=== PATIENT | female | born 2005 | race Caucasian/White ===

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

== ENCOUNTER 2024-05-12 12:21 | Emergency (ER) | payer OTHER ==
[~2024-05-12] VITALS: Ht 152.4 cm; Wt 70.3 kg
[2024-05-12] MEDS ORDERED: Doxycycline Hyclate 100 MG in SODIUM CHLORIDE 0.9% 250 ML IV ONE (12:50)
[2024-05-12] MEDS ORDERED: Ceftriaxone Sodium 1 GM/10 ML SYR IV ONE (12:50)
[2024-05-12 13:12] LABS: HEMATOCRIT 42.2 % (37.0-47.0); MANUAL DIFF REFLEX YES; MEAN CELL VOLUME 87.4 fl (81.0-99.0); MEAN CORPUSCULAR HGB 28.4 pg (27.0-31.0); MEAN CORPUSCULAR HGB CONC 32.5 g/dl (33.0-37.0); MEAN PLATELET VOLUME 8.5 fl (9.6-12.3); PLATELET COUNT AUTOMATED 384 10*3/uL (130-400); RED BLOOD COUNT 4.83 10*6/uL (4.10-5.10); WHITE BLOOD COUNT 10.6 10*3/uL (4.8-10.8)
[2024-05-12 13:24] LABS: ATYPICAL LYMPHS 5 % (0-0); PLATELET SUFFICIENCY NORMAL (NORMAL); POLYCHROMASIA SLIGHT; TOTAL CELLS COUNTED 100 #CELLS
[2024-05-12 13:25] LABS: BURR CELLS FEW
[2024-05-12 13:29] LABS: ALKALINE PHOSPHATASE 116 U/L (46-116); BUN 8 mg/dl (9-23); CHLORIDE 104 mmol/L (98-107); SGPT/ALT 56 U/L (5-49); TOTAL PROTEIN 7.8 gm/dL (6.0-8.0)
[2024-05-12] MEDS ORDERED: VIBRAMYCIN100 MG PO (16:25)
[2024-05-12] MEDS ORDERED: FLUOXETINE HYDR20 M1 PO (16:26)
[2024-05-12] MEDS ORDERED: LISDEXAMFETAMIN20 MG PO (16:26)
[2024-05-12] MEDS ORDERED: ATARAX,VISTARIL10 MG PO (16:26)
== END 2024-05-12 19:53 | disposition short-term general hospital (02) ==
LOC: ED 12:21
PROVIDERS: Emergency Medicine
DX: A69.20 Lyme disease, unspecified (principal); I44.2 Atrioventricular block, complete

== ENCOUNTER → 2024-06-06 | Outpatient (CLI) | payer OTHER ==
[~2024-06-06] MED LIST changes: +ATARAX,VISTARIL10 MG PO; +FLUOXETINE HYDR20 M1 PO; +LISDEXAMFETAMIN20 MG PO; +VIBRAMYCIN100 MG PO
== END | disposition home or self-care (01) ==
LOC: US 02:08
PROVIDERS: ATTEND Internal Medicine
DX: D24.1 Benign neoplasm of right breast (principal); N63.41 Unspecified lump in right breast, subareolar